=== PATIENT | male | born 1970 | race Caucasian/White ===

== ENCOUNTER 2020-03-02 18:14 | Emergency (ER) | payer SELFPAY ==
[~2020-03-02] VITALS: Ht 180.3 cm; Wt 81.6 kg
[2020-03-02 22:10] VITALS: BP 131/80
[2020-03-02] MEDS ORDERED: HYDROcodone-ACET 10/325MG TAB PO ONE (22:15)
== END 2020-03-02 23:14 | disposition home or self-care (01) ==
LOC: ER 18:14
DX: S42.031A Displaced fracture of lateral end of right clavicle, initial encounter for closed fracture (principal); V29.9XXA Motorcycle rider (driver) (passenger) injured in unspecified traffic accident, initial encounter; Y93.89 Activity, other specified; Y92.89 Other specified places as the place of occurrence of the external cause; Y99.8 Other external cause status
CPT/HCPCS: 73030